=== PATIENT | female | born 1995 | race African-American/Black ===

== ENCOUNTER 2020-03-21 08:40 | Outpatient (CLI) | payer BC | END 2020-03-21 19:21 | disposition home or self-care (01) | LOC: US 08:40 | DX: R11.2 Nausea with vomiting, unspecified (principal); R79.82 Elevated C-reactive protein (CRP); R70.0 Elevated erythrocyte sedimentation rate ==

== ENCOUNTER 2021-02-08 12:08 | Outpatient (CLI) | payer OTHER | END 2021-02-08 21:11 | disposition home or self-care (01) | LOC: RAD 12:08 | PROVIDERS: ATTEND Nurse Practitioner Family | DX: R76.11 Nonspecific reaction to tuberculin skin test without active tuberculosis (principal) ==